=== PATIENT | female | born 1965 | race Caucasian/White ===

== ENCOUNTER 2017-09-19 21:04 | Emergency (ER) | payer OTHER ==
[2017-09-19 21:16] VITALS: BP 135/75
--- NOTE | 2017-09-19 21:22 | UC ---
Complaint Female HPI - HPI Summary HPI Summary: The patient is a 51-year-old female with a 7 day history of dysuria urgency and frequency. Denies any fever or chills. She has not had any nausea or vomiting. She denies any back or abdominal pain. She denies any history of vaginal discharge or itching. - History Of Current Complaint Chief Complaint: UCGU Stated Complaint: URINARY COMPLAINT Time Seen by Provider: 09/19/17 21:17 Hx Obtained From: Patient Onset/Duration: Gradual Onset Timing: Constant Severity Initially: Mild Severity Currently: Mild Pain Intensity: 4 Pain Scale Used: 0-10 Numeric Character: Burning Aggravating Factor(s): Nothing Associated Signs And Symptoms: Positive: Negative Related Hx: Similar Episode/Dx as: - uti - Allergies/Home Medications Allergies/Adverse Reactions: Allergies Allergy/AdvReac Type Severity Reaction Status Date / Time No Known Allergies Allergy Verified 09/19/17 21:14 PMH/Surg Hx/FS Hx/Imm Hx Previously Healthy: Yes - Surgical History Surgical History: None - Family History Known Family History: Positive: Hypertension - Social History Alcohol Use: Occasionally Substance Use Type: None Smoking Status (MU): Never Smoked Tobacco Review of Systems Constitutional: Negative Skin: Negative Eyes: Negative ENT: Negative Respiratory: Negative Cardiovascular: Negative Gastrointestinal: Negative Genitourinary: Dysuria, Frequency, Urgency Motor: Negative Neurovascular: Negative Musculoskeletal: Negative Neurological: Negative Psychological: Negative Is Patient Immunocompromised?: No All Other Systems Reviewed And Are Negative: Yes Physical Exam Triage Information Reviewed: Yes Appearance: Well-Appearing, No Pain Distress, Well-Nourished Vital Signs: Initial Vital Signs Temp 98.9 F 09/19/17 21:14 Pulse 67 09/19/17 21:14 Resp 17 09/19/17 21:14 BP 135/75 09/19/17 21:14 Pulse Ox 100 09/19/17 21:14 Vital Signs Reviewed: Yes Eyes: Positive: Conjunctiva Clear ENT: Positive: Hearing grossly normal. Negative: Nasal congestion, Nasal drainage, Trismus, Muffled voice, Hoarse voice Neck: Positive: Supple, Nontender Respiratory: Positive: Lungs clear, Normal breath sounds, No respiratory distress Cardiovascular: Positive: RRR, No Murmur Abdomen Description: Positive: Nontender, No Organomegaly. Negative: CVA Tenderness (R), CVA Tenderness (L) Bowel Sounds: Positive: Present Musculoskeletal: Positive: ROM Intact, No Edema Neurological: Positive: Alert Psychological Exam: Normal Skin Exam: Normal Diagnostics - Laboratory Diagnostic Studies Completed/Ordered: urine dip ++leuks Complaint Female Dx - Differential Dx/Diagnosis Provider Diagnoses: acute cystitis Discharge - Sign-Out/Discharge Documenting (check all that apply): Discharge/Admit/Transfer - Discharge Plan Condition: Stable Disposition: HOME Prescriptions: Cephalexin CAP* [Keflex CAP*] 500 mg PO BID #12 cap Phenazopyridine TAB* [Pyridium 100 mg TAB*] 100 mg PO TID #4 tab Patient Education Materials: Urinary Tract Infection in Women (ED) Referrals: Bella Fountain MD [Primary Care Provider] - Additional Instructions: recheck for new or worsening symptoms recheck if not better in 2-3 days - Billing Disposition and Condition Condition: STABLE Disposition: Home
[2017-09-19] MEDS ORDERED: Cephalexin CAP* 500 MG PO ONE ×2 (21:26)
[2017-09-19] MEDS ORDERED: Phenazopyridine TAB* 100 MG PO ONE ×2 (21:27)
--- NOTE | 2017-09-22 06:58 | UC ---
- Progress Note Progress Note: NOTIFY PT NO UTI STOP ANTIBIOTIC RECHECK IF STILL SYMPTOMATIC Discharge - Sign-Out/Discharge Documenting (check all that apply): Post-Discharge Follow Up - Discharge Plan Condition: Stable Disposition: HOME Prescriptions: Cephalexin CAP* [Keflex CAP*] 500 mg PO BID #12 cap Phenazopyridine TAB* [Pyridium 100 mg TAB*] 100 mg PO TID #4 tab Patient Education Materials: Urinary Tract Infection in Women (ED) Referrals: Bella Fountain MD [Primary Care Provider] - Additional Instructions: recheck for new or worsening symptoms recheck if not better in 2-3 days - Billing Disposition and Condition Condition: STABLE Disposition: Home
== END 2017-09-19 21:42 | disposition home or self-care (01) ==
LOC: UCCORT 21:04
DX: N30.00 Acute cystitis without hematuria (principal); Z82.49 Family history of ischemic heart disease and other diseases of the circulatory system
CPT/HCPCS: 81003; 87086; 99203; A9270-GY; G0463

== ENCOUNTER 2018-12-05 19:42 | Emergency (ER) | payer OTHER ==
[2018-12-05 20:17] VITALS: BP 120/88
--- NOTE | 2018-12-05 20:58 | ED ---
Lower Extremity - HPI Summary HPI Summary: 52 yr old female with left ankle pain. Onset four days ago. She rolled her ankle. The patient has had STS and swelling lateral ankle since with pain on weight bearing. 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 No other complaints. Her pain is moderate. - History of Current Complaint Chief Complaint: UCLowerExtremity Stated Complaint: LT ANKLE INJURY Time Seen by Provider: 12/05/18 20:15 Pain Intensity: 7 - Allergies/Home Medications Allergies/Adverse Reactions: Allergies Allergy/AdvReac Type Severity Reaction Status Date / Time No Known Allergies Allergy Verified 09/19/17 21:14 Home Medications: Home Medications NK [No Home Medications Reported] 12/05/18 [History Confirmed 12/05/18] PMH/Surg Hx/FS Hx/Imm Hx - Surgical History Surgery Procedure, Year, and Place: left foot x2 surgeries 2019 Infectious Disease History: No Infectious Disease History: Denies: Traveled Outside the [place] in Last 30 Days - Family History Known Family History: Positive: Hypertension - Social History Occupation: Employed Full-time Alcohol Use: Occasionally Substance Use Type: Reports: None Smoking Status (MU): Never Smoked Tobacco Review of Systems Positive: Other - left ankle pain All Other Systems Reviewed And Are Negative: Yes Physical Exam Triage Information Reviewed: Yes Vital Signs On Initial Exam: Initial Vitals Temp Pulse Resp BP Pulse Ox 98.2 F 99 16 120/88 100 12/05/18 20:09 12/05/18 20:09 12/05/18 20:09 12/05/18 20:12/05/18 20:09 Vital Signs Reviewed: Yes Appearance: Positive: Well-Appearing, No Pain Distress Skin: Positive: Warm, Skin Color Reflects Adequate Perfusion Head/Face: Positive: Normal Head/Face Inspection Eyes: Positive: EOMI ENT: Positive: Normal ENT inspection Neck: Positive: Nontender Respiratory/Lung Sounds: Positive: Clear to Auscultation, Breath Sounds Present Cardiovascular: Positive: Pulses are Symmetrical in both Upper and Lower Extremities Abdomen Description: Negative: Distended Musculoskeletal: Positive: Other - left ankle with STS over the lateral malleolus with tenderness over the tip. Neurological: Positive: Sensory/Motor Intact, Alert, Oriented to Person Place, Time, CN Intact II-III Psychiatric: Positive: Normal Procedures - Splinting Left Lower Extremity Location: left foot ankle leg Hand-Made Type: orthoglass Splint: posterior walking Pre-Proc Neuro Vasc Exam: normal Post-Proc Neuro Vasc Exam: normal Splint Applied by Provider: Endy Galaviz - Vital Signs Vital Signs Temp Pulse Resp BP Pulse Ox 12/05/18 20:09 98.2 F 99 16 120/88 100 - Laboratory Lab Statement: Any lab studies that have been ordered have been reviewed, and results considered in the medical decision making process. - Radiology left ankle pain Radiology Interpretation Completed By: ED Physician - distal left fibula fracture. Lower Extremity Course/Dx - Course Course Of Treatment: Left ankle fracture. Splinted by wa posterior splint FU with ortho - Diagnoses Provider Diagnoses: Ankle fracture, left, Nondisplaced fracture Discharge ED - Sign-Out/Discharge Documenting (check all that apply): Patient Departure All imaging exams completed and their final reports reviewed: No - Discharge Plan Condition: Good Disposition: HOME Patient Education Materials: Ankle Fracture (ED) Referrals: Bella Fountain MD [Primary Care Provider] - 1 Day Kody Mcelroy MD [Medical Doctor] - 1 Day - Billing Disposition and Condition Condition: GOOD Disposition: Home
--- NOTE | 2018-12-06 10:09 | ED ---
Progress - Progress Note Progress Note: final read reviewed Course/Dx - Course Course Of Treatment: Left ankle fracture. Splinted by me posterior splint FU with ortho - Diagnoses Provider Diagnoses: Ankle fracture, left, Nondisplaced fracture Discharge ED - Sign-Out/Discharge Documenting (check all that apply): Patient Departure All imaging exams completed and their final reports reviewed: Yes - Discharge Plan Condition: Good Disposition: HOME Patient Education Materials: Ankle Fracture (ED) Referrals: Kody Mcelroy MD [Medical Doctor] - 1 Day Bella Fountain MD [Primary Care Provider] - 1 Day - Billing Disposition and Condition Condition: GOOD Disposition: Home
== END 2018-12-05 21:25 | disposition home or self-care (01) ==
LOC: UCCORT 19:42
DX: S82.892A Other fracture of left lower leg, initial encounter for closed fracture (principal); X50.1XXA Overexertion from prolonged static or awkward postures, initial encounter; Y92.9 Unspecified place or not applicable
CPT/HCPCS: 99212; G0463